=== PATIENT | female | born 1960 | race Hispanic/Latino ===

== ENCOUNTER 2024-07-08 09:23 | Outpatient (CLI) | payer BC | END 2024-07-08 09:24 | disposition home or self-care (01) | LOC: CSHSLEEP 09:23 | PROVIDERS: ATTEND Family Medicine | DX: G47.33 Obstructive sleep apnea (adult) (pediatric) (principal); R53.83 Other fatigue; R09.89 Other specified symptoms and signs involving the circulatory and respiratory systems; R51.9 Headache, unspecified; F41.9 Anxiety disorder, unspecified; E66.9 Obesity, unspecified; Z68.26 Body mass index [BMI] 26.0-26.9, adult; R06.83 Snoring; I10 Essential (primary) hypertension | CPT/HCPCS: 95810 ==